=== PATIENT | female | born 1950 | race Caucasian/White ===

== ENCOUNTER 2016-07-29 14:30 | Emergency (ER) | payer OTHER, MEDICARE ==
--- NOTE | 2016-07-29 16:33 | ER Document Report ---
ED Medical Screen (RME) - General Chief Complaint: Back Pain Stated Complaint: POSSIBLE WITHDRAWAL Mode of Arrival: Ambulatory Information source: Patient Notes: Patient is complaining of abdominal pain described as burning, headache, insomnia, sweats, chills, diarrhea that started last night. She believes she is going through withdrawal from oxycodone. She has been taking this medication for 7 years, most recent dosage was 20 mg. She states her new doctor won't refill her medication. Her last dose was yesterday afternoon. She has not had any other medications. TRAVEL OUTSIDE OF THE [place] IN LAST 30 DAYS: No - Related Data Allergies/Adverse Reactions: No Known Allergies Allergy (Unverified 07/29/16 14:49) Review of Systems - Review of Systems Constitutional: See HPI Gastrointestinal: See HPI Musculoskeletal: See HPI Physical Exam - Vital signs Vitals: Temp Pulse Resp BP Pulse Ox 98.0 F 89 18 151/80 H 99 07/29/16 14:45 07/29/16 14:45 07/29/16 14:45 07/29/16 14:45 07/29/16 14:45 - Notes Notes: General: ill-appearing, no respiratory distress. Appears uncomfortable. Course - Re-evaluation Re-evalutation: 07/29/16 16:32 Ordered lab work and urinalysis. Patient refused tylenol. - Vital Signs Vital signs: Temp Pulse Resp BP Pulse Ox 98.0 F 89 18 151/80 H 99 07/29/16 14:45 07/29/16 14:45 07/29/16 14:45 07/29/16 14:45 07/29/16 14:45
[2016-07-29 17:28] LABS: ABSOLUTE BASOPHILS # (AUTO) 0.1 10^3/uL (0.0-0.2); ABSOLUTE LYMPHOCYTES (AUTO) 1.8 10^3/uL (0.5-4.7); ABSOLUTE MONOCYTES (AUTO) 0.4 10^3/uL (0.1-1.4); ABSOLUTE NEUT (AUTO) 8.9 10^3/uL (1.7-8.2); BASOPHILS % (AUTO) 0.7 % (0-2); EOSINOPHILS % (AUTO) 0.2 % (0-6); HEMATOCRIT 46.5 % (36.0-47.0); HEMOGLOBIN 15.5 g/dL (12.0-15.5); LYMPHOCYTES % (AUTO) 16.5 % (13-45); MEAN CORPUSCULAR HEMOGLOBIN 29.6 pg (27.0-33.4); MEAN CORPUSCULAR HGB CONC 33.3 g/dL (32.0-36.0); MEAN CORPUSCULAR VOLUME 89 fl (80-97); MONOCYTES % (AUTO) 3.2 % (3-13); RED BLOOD COUNT 5.22 10^6/uL (3.72-5.28); RED CELL DISTRIBUTION WIDTH 13.8 % (11.5-14.0); SEGMENTED NEUTROPHILS % (AUTO) 79.4 % (42-78); WHITE BLOOD COUNT 11.2 10^3/uL (4.0-10.5)
[2016-07-29 17:45] LABS: ALANINE AMINOTRANSFERASE 24 U/L (9-52); ALBUMIN 4.9 g/dL (3.5-5.0); ALKALINE PHOSPHATASE 82 U/L (38-126); ANION GAP 15 (5-19); ASPARTATE AMINO TRANSFERASE 16 U/L (14-36); BILIRUBIN,TOTAL 0.5 mg/dL (0.2-1.3); BLOOD UREA NITROGEN 12 mg/dL (7-20); CARBON DIOXIDE 25 mmol/L (22-30); CHLORIDE 104 mmol/L (98-107); CREATININE RESULT 0.54 mg/dL (0.52-1.25); GLUCOSE 92 mg/dL (75-110); LIPASE 33.7 U/L (23-300); POTASSIUM 4.3 mmol/L (3.6-5.0); SODIUM 143.7 mmol/L (137-145); TOTAL PROTEIN 7.6 g/dL (6.3-8.2)
[2016-07-29 17:46] LABS: APPEARANCE,URINE SLIGHTLY-CLOUDY; BILIRUBIN,URINE NEGATIVE (NEGATIVE); GLUCOSE, URINE NEGATIVE (NEGATIVE); KETONES,URINE NEGATIVE (NEGATIVE); LEUKOCYTE ESTERASE,URINE TRACE (NEGATIVE); NITRITE,URINE NEGATIVE (NEGATIVE); PROTEIN,URINE NEGATIVE (NEGATIVE); URINE SPECIFIC GRAVITY 1.013; UROBILINOGEN,URINE NEGATIVE mg/dL (<2.0)
[2016-07-29 18:00] LABS: URINE BARBITURATES SCREEN NEGATIVE; URINE METHADONE SCREEN NEGATIVE; URINE PHENCYCLIDINE SCREEN NEGATIVE
[2016-07-29] MEDS ORDERED: HYDROXYZINE PAMOATE 25 MG CAPSULE PO ONE (20:46)
[2016-07-29] MEDS ORDERED: PROMETHAZINE HCL 25 MG TABLET PO ONE (20:46)
--- NOTE | 2016-07-29 20:48 | ER Document Report ---
ED General - General Chief Complaint: withdrawl symptoms Stated Complaint: POSSIBLE WITHDRAWAL Time seen by provider: 20:45 Mode of Arrival: Ambulatory Notes: Patient is a 66-year-old female that comes emergency department for chief complaint of chills, diarrhea, abdominal cramping, insomnia since yesterday. She states she is probably going through withdrawals oxycodone, she has been on this for 7 years for a back injury, she states that she was considering getting off oxycodone and now suddenly her provider told her they will not fill her prescription, refer her to pain management which is in [place], she states she has not been able to get to [place]. Last dose was yesterday afternoon. She denies any other past medical history or any other medications. TRAVEL OUTSIDE OF THE [place] IN LAST 30 DAYS: No - Related Data Allergies/Adverse Reactions: No Known Allergies Allergy (Unverified 07/29/16 14:49) Past Medical History - General Information source: Patient Last Menstrual Period: unknown - Social History Smoking Status: Never Smoker Frequency of alcohol use: None Drug Abuse: None Lives with: Family Family History: Reviewed & Not Pertinent Patient has suicidal ideation: No Patient has homicidal ideation: No - Past Medical History Cardiac Medical History: Reports: Hx Hypertension - Immunizations Hx Diphtheria, Pertussis, Tetanus Vaccination: Yes Review of Systems - Review of Systems Constitutional: See HPI EENT: No symptoms reported Cardiovascular: No symptoms reported Respiratory: No symptoms reported Gastrointestinal: See HPI Genitourinary: No symptoms reported Female Genitourinary: No symptoms reported Musculoskeletal: See HPI Skin: No symptoms reported Hematologic/Lymphatic: No symptoms reported Neurological/Psychological: No symptoms reported Physical Exam - Vital signs Vitals: Temp Pulse Resp BP Pulse Ox 98.0 F 89 18 151/80 H 99 07/29/16 14:45 07/29/16 14:45 07/29/16 14:45 07/29/16 14:45 07/29/16 14:45 Interpretation: Normal - General General appearance: Anxious In distress: Mild - Patient appears uncomfortable, restless, disheveled - HEENT Head: Normocephalic, Atraumatic Eyes: Normal Conjunctiva: Normal Extraocular movements intact: Yes Eyelashes: Normal Pupils: PERRL Sinus: Normal Nasal: Normal Mouth/Lips: Normal Mucous membranes: Normal Pharynx: Normal Neck: Normal - Respiratory Respiratory status: No respiratory distress Chest status: Nontender Breath sounds: Normal. No: Decreased air movement, Wheezing Chest palpation: Normal - Cardiovascular Rhythm: Regular. No: Tachycardia Heart sounds: Normal auscultation, S1 appreciated, S2 appreciated Murmur: No - Abdominal Inspection: Normal Distension: No distension Bowel sounds: Normal Tenderness: Nontender - Benign nontender abdomen. No: Tender, Guarding Organomegaly: No organomegaly - Back Back: Normal, Nontender. No: Tender, CVA tenderness - Extremities General upper extremity: Normal inspection, Nontender, Normal color, Normal ROM , Normal temperature General lower extremity: Normal inspection, Nontender, Normal color, Normal ROM , Normal temperature, Normal weight bearing. No: Nestor's sign - Neurological Neuro grossly intact: Yes Cognition: Normal Orientation: AAOx4 Norman Coma Scale Eye Opening: Spontaneous Norman Coma Scale Verbal: Oriented Vince Coma Scale Motor: Obeys Commands Vince Coma Scale Total: 15 Speech: Normal Cranial nerves: Normal Cerebellar coordination: Normal Motor strength normal: LUE, RUE, LLE, RLE Additional motor exam normals: Equal evaluation analyst Sensory: Normal - Psychological Associated symptoms: Irritable - Skin Skin Temperature: Warm Skin Moisture: Dry Skin Color: Normal Course - Re-evaluation Re-evalutation: Discussed in detail with patient. After Phenergan, Vistaril, patient is still very restless, has body aches, has nausea, very uncomfortable. Discussed with patient continued withdrawal with symptom management medications versus short- term supply and close follow-up with arrangements for detox. Patient also has the option of the pain clinic she was referred to but has not made it to yet. Patient unsure initially, on reevaluation she continues to be miserable she requests something for pain. She was provided with this, short-term supply of pain medication, referral to [facility] for arrangements for detox, patient states this is the route that she wants to pursue. Advised to return for any concerning symptoms. Friend is very supportive during the entire visit and is at bedside, and agreement with plan. - Vital Signs Vital signs: Temp Pulse Resp BP Pulse Ox 97.8 F 62 18 145/68 H 99 07/29/16 22:56 07/29/16 22:56 07/29/16 22:56 07/29/16 22:56 07/29/16 22:56 - Laboratory Result Diagrams: 07/29/16 17:02 07/29/16 17:02 Laboratory results interpreted by me: 07/29/16 07/29/16 07/29/16 17:02 17:02 17:02 WBC 11.2 H Seg Neutrophils % 79.4 H Absolute Neutrophils 8.9 H Calcium 11.0 H Urine Blood SMALL H Ur Leukocyte Esterase TRACE H Discharge - Discharge Clinical Impression: Opiate withdrawal Opiate dependence Qualifiers: Substance use status: uncomplicated Qualified Code(s): F11.20 - Opioid dependence, uncomplicated Condition: Stable Disposition: HOME, SELF-CARE Additional Instructions: Please follow-up with [facility] or your primary care to discuss referral for detox program. Alternatively consider following up with pain management which your primary care referred you to. Return the emergency department for any concerning symptoms. Prescriptions: Oxycodone HCl [Oxycodone HCl 10 MG Tablet] 1 - 2 tab PO Q6H PRN #25 tablet PRN Reason: PAIN Referrals: GOVIND FLANAGAN [Primary Care Provider] - Follow up as needed [facility] [Provider Group] - Follow up tomorrow
[2016-07-29] MEDS ORDERED: OXYCODONE HCL IR 5 MG TABLET PO ONE (22:25)
[2016-07-29 22:57] VITALS: BP 145/68
== END 2016-07-29 22:59 | disposition home or self-care (01) ==
LOC: ER 14:30
DX: F11.23 Opioid dependence with withdrawal (principal); R19.7 Diarrhea, unspecified; R10.9 Unspecified abdominal pain; G47.00 Insomnia, unspecified; F11.20 Opioid dependence, uncomplicated
CPT/HCPCS: 99284; 36415; 83690; 85025; 80053; 81001; G0479; 80307

== ENCOUNTER → 2016-10-20 | Outpatient (CLI) | payer OTHER | LOC: RAD 17:01 | PROVIDERS: ATTEND Specialist | DX: C34.91 Malignant neoplasm of unspecified part of right bronchus or lung (principal) | CPT/HCPCS: 78815; A9552 ==

== ENCOUNTER → 2016-10-21 | Outpatient (CLI) | payer OTHER | LOC: RAD 13:31 | PROVIDERS: ATTEND Specialist | DX: C34.91 Malignant neoplasm of unspecified part of right bronchus or lung (principal) | CPT/HCPCS: 70553; A9577 ==

== ENCOUNTER → 2016-11-06 | Outpatient (CLI) | payer MEDICARE, OTHER ==
[2016-11-06 11:27] LABS: ABSOLUTE LYMPHOCYTES (AUTO) 1.2 10^3/uL (0.5-4.7); ABSOLUTE NEUT (AUTO) 12.1 10^3/uL (1.7-8.2); BASOPHILS % (AUTO) 0.2 % (0-2); EOSINOPHILS % (AUTO) 0.1 % (0-6); HEMATOCRIT 42.6 % (36.0-47.0); HEMOGLOBIN 14.8 g/dL (12.0-15.5); HGB HCT DIFFERENCE 1.8; LYMPHOCYTES % (AUTO) 8.7 % (13-45); MEAN CORPUSCULAR HEMOGLOBIN 31.8 pg (27.0-33.4); MEAN CORPUSCULAR HGB CONC 34.6 g/dL (32.0-36.0); MEAN CORPUSCULAR VOLUME 92 fl (80-97); RED BLOOD COUNT 4.64 10^6/uL (3.72-5.28); RED CELL DISTRIBUTION WIDTH 13.1 % (11.5-14.0); WHITE BLOOD COUNT 14.4 10^3/uL (4.0-10.5)
== END ==
LOC: OD 10:41
PROVIDERS: ATTEND Radiology Radiation Oncology
DX: C34.11 Malignant neoplasm of upper lobe, right bronchus or lung (principal); C79.31 Secondary malignant neoplasm of brain
CPT/HCPCS: 36415; 85025

== ENCOUNTER → 2016-12-29 | Outpatient (CLI) | payer OTHER ==
--- NOTE | 2016-12-30 10:28 | RADIOLOGY REPORT (SQ) ---
EXAM DESCRIPTION: PET CT SKULL/THIGH COMPLETED DATE/TIME: 12/29/2016 10:46 pm REASON FOR STUDY: LUNG CANCER C34.91 MALIGNANT NEOPLASM OF UNSP PART OF RIGHT BRONCHUS OR COMPARISON: Bold PET-CT 02/13/2016 PET-CT 10/20/2016 RADIONUCLIDE AND DOSE: 11.6 mCi F18 FDG The route of agent administration: Intravenous FASTING BLOOD SUGAR: 96 mg/dl CONTRAST TYPE AND DOSE: No CT contrast given. TECHNIQUE: Blood glucose level was verified. Above dose of FDG was injected intravenously. 2-D seg mented attenuation correction images were obtained from the base of the skull to the midthighs. Nonc ontrast CT images were obtained for attenuation correction and fusion with emission images. CT image s were performed without oral or intravenous contrast and are not sensitive for parenchymal lesions. A series of overlapping emission PET images were obtained. Images reviewed and manipulated at [facility] work station by the radiologist. Images stored on PACS. LIMITATIONS: None. FINDINGS: HEAD AND NECK: No areas of abnormal metabolic activity in the soft tissues of the head and neck. CHEST: No areas of abnormal metabolic activity in the chest. ABDOMEN AND PELVIS: No areas of abnormal metabolic activity in the abdomen or pelvis. Expected physi ologic activity is present in the genitourinary system and bowel. PROXIMAL LOWER EXTREMITIES: No areas of abnormal metabolic activity in the soft tissues of the lower extremities. BONES: No areas of abnormal metabolic activity in the bony structures. ADDITIONAL CT FINDINGS: Post right upper lobectomy. Old bilateral breast implants. Post hysterectom y. OTHER: Blood pool activity SUV 2.0, liver activity SUV 2.4 IMPRESSION: No PET-CT evidence of residual or recurrent disease given history of stage IV non-small cell lung cancer TECHNICAL DOCUMENTATION: JOB ID: [id number]- All Rights Reserved
== END ==
LOC: RAD 16:05
PROVIDERS: ATTEND Specialist
DX: C34.91 Malignant neoplasm of unspecified part of right bronchus or lung (principal)
CPT/HCPCS: 78815; A9552

== ENCOUNTER → 2017-03-14 | Outpatient (CLI) | payer OTHER ==
--- NOTE | 2017-03-14 12:25 | RADIOLOGY REPORT (SQ) ---
EXAM DESCRIPTION: MRI HEAD COMBO COMPLETED DATE/TIME: 03/14/2017 10:33 am REASON FOR STUDY: LUNG CA C34.91 MALIGNANT NEOPLASM OF UNSP PART OF RIGHT BRONCHUS OR COMPARISON: MRI brain 10/21/2016 TECHNIQUE: Multiplanar imaging includes noncontrasted T1, T2, FLAIR, diffusion with ADC map and post gadolinium contrast T1 sequences. Images stored on PACS. CONTRAST TYPE AND DOSE: 10 mL Multihance. RENAL FUNCTION: GFR > 60. LIMITATIONS: None. FINDINGS: ANATOMY: No congenital anomalies. Normal vascular flow voids. Pituitary fossa normal. CSF SPACES: Normal in size and contour. No hemorrhage. CEREBRUM: Patient is post right frontal craniotomy. Deep to the craniotomy flap there is mild anteri or right frontal encephalomalacia. There is minimal dural thickening deep to the craniotomy flap. N odule with enhancement seen on 09/26/2016 is no longer present. There is diffuse dural thickening along the rightward aspect of the superior sagittal sinus, less pro minent than on 10/21/2016. There is a small dural enhancing mass along the anterior aspect anterior cranial fossa best shown on axial image 105/ 152. This measures 1.8 x 1 cm in size (was 2.4 x 1.3 cm in size on 09/26/2016). An enhancing dural-based left falx nodules in the posterior frontal region is 1.1 x 1 cm on today's e xam (was 1.4 x 1 cm on 10/21/2016). Today's imaging demonstrates increased FLAIR/ T2 signal in the right frontal white matter deep to the craniotomy flap, stable, in the left posterior frontal region adjacent to the dural-based metastatic nodule, stable, and in the bilateral posterior temporal/periatrial regions, stable. No MR evidence of acute ischemic change, acute intracranial hemorrhage, mass effect, or shift. POSTERIOR FOSSA: Punctate focus of increased FLAIR/ T2 signal in the right jessica without contrast enha ncement. This likely represents a small focus of white matter ischemic change. No hemorrhage. No ed tobias, masses, or mass effect. Internal auditory canals, cerebellopontine angles, mastoids normal. No e nhancing lesions. No abnormal enhancement post contrast. DIFFUSION IMAGING: Negative for acute or subacute infarction. ORBITS: No masses. Globes normal. PARANASAL SINUSES: No fluid levels. Mucosa normal. OTHER: Fluid in the right mastoid air cells, similar compared to 10/21/2016 IMPRESSION: Treatment response with decrease in size of dural-based metastatic lesions as above. EVIDENCE OF ACUTE STROKE: NO. TECHNICAL DOCUMENTATION: JOB ID: [id number] [employer]- All Rights Reserved
== END ==
LOC: RAD 09:24
PROVIDERS: ATTEND Internal Medicine
DX: C34.91 Malignant neoplasm of unspecified part of right bronchus or lung (principal)
CPT/HCPCS: 82565; 70553; A9577

== ENCOUNTER 2017-03-26 10:15 | Day surgery (SDC) | payer OTHER ==
[2017-03-24 11:35] LABS: HEMATOCRIT 43.7 % (36.0-47.0); HEMOGLOBIN 15.1 g/dL (12.0-15.5); HGB HCT DIFFERENCE 1.6; MEAN CORPUSCULAR HEMOGLOBIN 31.2 pg (27.0-33.4); MEAN CORPUSCULAR HGB CONC 34.5 g/dL (32.0-36.0); MEAN CORPUSCULAR VOLUME 90 fl (80-97); RED BLOOD COUNT 4.83 10^6/uL (3.72-5.28); RED CELL DISTRIBUTION WIDTH 13.6 % (11.5-14.0); WHITE BLOOD COUNT 7.8 10^3/uL (4.0-10.5)
[2017-03-24 12:00] LABS: ANION GAP 11 (5-19); BLOOD UREA NITROGEN 10 mg/dL (7-20); CALCIUM 10.7 mg/dL (8.4-10.2); CARBON DIOXIDE 31 mmol/L (22-30); CHLORIDE 99 mmol/L (98-107); CREATININE RESULT 0.63 mg/dL (0.52-1.25); GLUCOSE 90 mg/dL (75-110); POTASSIUM 4.7 mmol/L (3.6-5.0); SODIUM 140.6 mmol/L (137-145)
--- NOTE | 2017-03-24 12:04 | EKG REPORT ---
SEVERITY:- OTHERWISE NORMAL ECG - SINUS RHYTHM LOW VOLTAGE IN FRONTAL LEADS : Confirmed by: Stacy Alexis 24-Mar-2017 12:03:52
[~2017-03-26 10:15] MED LIST: ACETAMINOPHEN 325 MG TABLET PO PRN; CEFAZOLIN 1 GM/D5W RTU 1 GM/50 ML RTUPB IV PRN; LACTATED RINGERS 1000 ML IV PRN; LIDOCAINE 0.5% INJ-PF (5 MG/ML) 50 ML SDV SUBCUT PRN
[2017-03-26] MEDS ORDERED: MIDAZOLAM 2 MG/2 ML INJ ONE (12:50)
[2017-03-26] MEDS ORDERED: FENTANYL CITRATE INJ/PF 100 MCG/2 ML AMPUL ONE ×2 (12:50→12:52)
[2017-03-26] MEDS ORDERED: PROPOFOL INJ 200 MG/20 ML VIAL IV ONE (12:51)
[2017-03-26] MEDS ORDERED: LIDOCAINE 1% INJ-PF (10 MG/ML) 30 ML SDV ONE ×2 (13:39→13:44)
[2017-03-26] MEDS ORDERED: DIPHENHYDRAMINE HCL 50 MG/ML VIAL IV PRN (13:43)
[2017-03-26] MEDS ORDERED: ONDANSETRON HCL INJ/PF 4 MG/2 ML SDV IV PRN ×2 (13:43→13:49)
[2017-03-26] MEDS ORDERED: FENTANYL CITRATE INJ/PF 100 MCG/2 ML AMPUL IV PRN ×3 (13:43)
[2017-03-26] MEDS ORDERED: OXYCODONE-ACETAMINOPHEN 5-325 MG TABLET PO PRN ×2 (13:49→13:59)
[2017-03-26] MEDS ORDERED: RINGERS SOLUTION,LACTATED 1,000 ML IV PRN (13:49)
--- NOTE | 2017-03-26 13:59 | PDOC DISCHARGE SUMMARY ---
Discharge Summary (SDC) - Discharge Final Diagnosis: metastatic lung carcinoma Date of Surgery: 03/26/17 Discharge Date: 03/26/17 Condition: Stable Treatment or Instructions: Leave paper bandaids intact until your follow up appointment. You may shower in 48 hours. Warm water and soap my run over the area. Do not scrub. If you have any questions or concerns you may call [facility] ) or if it is after hours you may call [facility] ([phone]) and ask to speak with the surgicalist. If you have unusual bleeding, swelling of incision site, swelling of neck or difficulty breathing call clinic/ hospital or go to ER. Follow up at [facility] in 10-12 days with Corinne Cesar PA-C. [facility]: [phone] Prescriptions: Ketorolac Tromethamine [Toradol 10 mg Tablet] 10 mg PO Q6HP PRN #20 tablet PRN Reason: Referrals: PANFILO NICHOLSON PA [Primary Care Provider] - Discharge Diet: As Tolerated Discharge Activity: Activity As Tolerated Report the Following to Your Physician Immediately: Shortness of Breath, Fever over 101 Degrees, Redness, Swelling, Drainage-Foul Smelling
--- NOTE | 2017-03-26 15:25 | RADIOLOGY REPORT (SQ) ---
EXAM DESCRIPTION: CHEST SINGLE VIEW COMPLETED DATE/TIME: 03/26/2017 2:11 pm REASON FOR STUDY: port placement COMPARISON: PET-CT 12/29/2016 EXAM PARAMETERS: NUMBER OF VIEWS: One view. TECHNIQUE: Single frontal radiographic view of the chest acquired. RADIATION DOSE: NA LIMITATIONS: None. FINDINGS: LUNGS AND PLEURA: Few Meenakshi lines at the lung bases, question mild interstitial edema. No fluffy alveolar infiltrates worrisome for perihilar pulmonary edema or pneumonia. No pleural effusion. No pneumothorax. MEDIASTINUM AND HILAR STRUCTURES: No masses. Contour normal. HEART AND VASCULAR STRUCTURES: Heart normal in size. Normal vasculature. BONES: No acute findings. HARDWARE: Left-sided permanent central line tip superior vena cava. OTHER: No other significant finding. IMPRESSION: Meenakshi lines at both lung bases, question interstitial edema Left-sided permanent central line tip superior vena cava. No pneumothorax. TECHNICAL DOCUMENTATION: JOB ID: [id number]
--- NOTE | 2017-03-26 15:35 | OPERATIVE REPORT E ---
Operative Report NAME: RYAN GUY : 1950 AGE: 66Y DATE OF SURGERY: ROOM: PREOPERATIVE DIAGNOSIS: Metastatic lung carcinoma. POSTOPERATIVE DIAGNOSIS: Metastatic lung carcinoma. OPERATION: 1. Focused ultrasound of left neck. 2. Ultrasound-directed insertion of single lumen Infusaport catheter with pocket in the left subclavian position. 3. Interpretation of intraoperative fluoroscopy. SURGEON: NOA SHELTON M.D. LOGGING CREW FOREMAN: Dionicio Morse COMPLICATIONS: None. DRAINS: None. TISSUE REMOVED OR ALTERED: None. PROCEDURE: The patient was taken to the preoperative holding area to the main operating room where LMAC anesthesia was induced. The patient's head was turned to the right. The chest wall and left neck were prepped and draped in sterile fashion. Surgical plan and surgical timeout were conducted. The left neck was scanned with a variable frequency transducer. The left internal jugular vein was felt suitable for cannulation. The skin was anesthetized with 1% plain lidocaine. Using the Seldinger technique, the needle and wire, micro size, were threaded into the left IJ. A suitable site for placement of the port was chosen in the left subclavian position. The skin was anesthetized with 1% lidocaine plain. A 3-cm incision was made parallel to the clavicle, a subcutaneous pocket developed large enough to accommodate a single chamber port. The catheter was then trimmed to the appropriate length, approximately 25 cm, tunneled between the two incisions, then attached to the port and the port and catheter tucked into position. Under fluoroscopic guidance, the micro wire was switched over to a conventional 0.030-inch guidewire using the micro introducer. The micro introducer sheath was removed and an 8-0 Occitan dilator and sheath were threaded over the wire under fluoroscopic guidance. The dilator and wire were removed, catheter threaded into the left IJ and the strip-away sheath removed. Under fluoroscopic guidance, the catheter was found to be in the tip of the superior vena cava. No evidence of kinking of the catheter at the neck. We aspirated and then flushed the port and it appeared to function satisfactorily. There was no evidence of ectopy. The wound was closed with 3-0 Vicryl, Benzoin and Steri-Strips. The patient tolerated the procedure well, taken to recovery in stable condition. A portable upright chest x-ray pending at the time of dictation. Dionicio Morse assisted with line insertion, tissue retraction and wound closure. DICTATING PHYSICIAN: NOA SHELTON M.D. [id number] PHY#: [id number] ID: [id number] JOB#: [id number] ACCT: [id number] cc:NOA SHELTON M.D. > [facility]
--- NOTE | 2017-03-26 16:01 | RADIOLOGY REPORT (SQ) ---
EXAM DESCRIPTION: FLUORO/CV PLACEMENT COMPLETED DATE/TIME: 03/26/2017 3:27 pm REASON FOR STUDY: PORTACATH PLCMT LEFT SIDE ASSISTED WITH FLUORO IN OR C34.91 MALIGNANT NEOPLASM OF UNSP PART OF RIGHT BRONCHUS OR COMPARISON: PET-CT 12/29/2016 FLUOROSCOPY TIME: 0.3 minutes 2 C-arm images saved to PACS. TECHNIQUE: Intra-operative images acquired during surgical procedure to evaluate progress. NUMBER OF IMAGES: Cine fluoroscopic images. LIMITATIONS: None. FINDINGS: Intra procedural imaging and fluoro during left-sided permanent central line placement. P lease see the operative note for further details IMPRESSION: Intra procedural imaging and fluoro COMMENT: Quality ID [id number]: Final reports for procedures using fluoroscopy that document radiation exp osure indices, or exposure time and number of fluorographic images (if radiation exposure indices are not available) Please consult full operative report of the attending physician for description of the procedure. TECHNICAL DOCUMENTATION: JOB ID: [id number] [employer]- All Rights Reserved
[2017-03-26 16:18] VITALS: BP 124/61
== END 2017-03-26 15:55 | disposition home or self-care (01) ==
LOC: OROUT 10:15
PROVIDERS: ATTEND Surgery
PROC: 05H633Z Insertion of Infusion Device into Left Subclavian Vein, Percutaneous Approach (ICD-10-PCS; principal; 2017-03-26 12:00)
DX: C79.31 Secondary malignant neoplasm of brain (principal); Z85.118 Personal history of other malignant neoplasm of bronchus and lung; I10 Essential (primary) hypertension; Z88.5 Allergy status to narcotic agent; Z79.899 Other long term (current) drug therapy
CPT/HCPCS: 93005; 36415; 85027; 80048; 71010; 77001; 93010; 36561; C1752; C1788; J2250; J0690; J3010; J3490; J2704; J1642; 532

== ENCOUNTER → 2017-07-01 | Outpatient (CLI) | payer OTHER ==
--- NOTE | 2017-07-01 12:28 | RADIOLOGY REPORT (SQ) ---
EXAM DESCRIPTION: MRI HEAD COMBO COMPLETED DATE/TIME: 07/01/2017 11:11 am REASON FOR STUDY: C34.91 MALIGNANT NEOPLASM OF UNSP PART OF RIGHT BRONCHUS OR LUNG C34.91 MALIGNANT NEOPLASM OF UNSP PART OF RIGHT BRONCHUS OR COMPARISON: 03/14/2017 and 10/21/2016. TECHNIQUE: Multiplanar imaging includes noncontrasted T1, T2, FLAIR, diffusion with ADC map and post gadolinium contrast T1 sequences. Images stored on PACS. CONTRAST TYPE AND DOSE: 10 mL Multihance. RENAL FUNCTION: GFR > 60. LIMITATIONS: None. FINDINGS: ANATOMY: No anomalies. Normal vascular flow voids. Pituitary fossa normal. CSF SPACES: Normal in size and contour. No hemorrhage. CEREBRUM: Previous right frontal craniotomy. Nodular dural thickening and enhancement anterior to th e right frontal lobe and along the anterior falx. Enhancing nodules along the right side of the ante rior falx, measuring 7 and 9 mm (sagittal series 13, image 13). Previous measurements 6 and 7 mm. E nhancing nodule on the left side of the mid falx, measuring 1 x 1 cm (axial series 11, image 18. Pre vious measurements 1 x 1.1 cm. Stable diffuse white matter increased signal on T2 and FLAIR imaging. POSTERIOR FOSSA: No signal alteration. No hemorrhage. No edema, masses, or mass effect. Internal jimy tory canals and cerebellopontine angles normal. Increased signal in the right mastoid air cells. No enhancing lesions. No abnormal enhancement post contrast. DIFFUSION IMAGING: Negative for acute or subacute infarction. ORBITS: No masses. Globes normal. PARANASAL SINUSES: No fluid levels. Mucosa normal. OTHER: No other significant finding. IMPRESSION: 1. STABLE SURGICAL CHANGES WITH ENHANCING DURAL BASED NODULES DESCRIBED. RELATIVELY STABLE APPEAR ANCE. THE NODULES ON THE RIGHT SIDE OF THE ANTERIOR FALX MEASURE A FEW MM LARGER ON THE CURRENT STUD Y BUT THIS MAY BE PARTLY DUE TO SLICE POSITION. EXTENSIVE WHITE MATTER SIGNAL CHANGE IS STABLE. 2. INCREASED SIGNAL IN THE RIGHT MASTOID AIR CELLS, PRESUMED INFLAMMATORY OR RELATED TO PREVIOUS MARCELLA TMENT, UNCHANGED. EVIDENCE OF ACUTE STROKE: NO. TECHNICAL DOCUMENTATION: JOB ID: [id number] [employer]- All Rights Reserved
--- NOTE | 2017-07-01 13:20 | RADIOLOGY REPORT (SQ) ---
EXAM DESCRIPTION: CT CHEST WITH COMPLETED DATE/TIME: 07/01/2017 10:09 am REASON FOR STUDY: C34.91 MALIGNANT NEOPLASM OF UNSP PART OF RIGHT BRONCHUS OR LUNG C34.91 MALIGNANT NEOPLASM OF UNSP PART OF RIGHT BRONCHUS OR COMPARISON: PET-CT dated 12/29/2016 and 10/20/2016. TECHNIQUE: CT scan of the chest performed using helical scanning technique with dynamic intravenous contrast injection. Images reviewed with lung, soft tissue and bone windows. Reconstructed coronal and sagittal MPR images reviewed. All images stored on PACS. All CT scanners at this facility use dose modulation, iterative reconstruction, and/or weight based d osing when appropriate to reduce radiation dose to as low as reasonably achievable (ALARA). [facility]: Dose Right [facility]: CareDose [facility]: Dose Right [facility]: Teradose 4D [facility]: [employer] CONTRAST TYPE AND DOSE: 58 mL Isovue 370- low osmolar. RENAL FUNCTION: BUN 14 creatinine 0.6. RADIATION DOSE: . LIMITATIONS: None. FINDINGS: LUNGS AND PLEURA: Stable surgical changes. Mild chronic parenchymal scarring. No opaciti es, nodules, masses. No pneumothorax. No effusions. HILAR AND MEDIASTINAL STRUCTURES: No identified masses or abnormal nodes. HEART AND VASCULAR STRUCTURES: No aneurysm or dissection. No central pulmonary emboli. No pericardi al effusion. HARDWARE: Vascular access port. Breast implants. UPPER ABDOMEN: No significant findings. Limited exam. THYROID AND OTHER SOFT TISSUES: No masses. No adenopathy. BONES: No significant finding. OTHER: No other significant finding. IMPRESSION: STABLE SURGICAL CHANGES. MILD SCARRING. NO OTHER SIGNIFICANT FINDINGS. NO EVIDENCE OF RESIDUAL OR RECURRENT DISEASE OR METASTASIS. TECHNICAL DOCUMENTATION: JOB ID: [id number] Quality ID # [id number]: Final reports with documentation of one or more dose reduction techniques (e.g., Au tomated exposure control, adjustment of the mA and/or kV according to patient size, use of iterative reconstruction technique) 2010 [employer]- All Rights Reserved
--- NOTE | 2017-07-01 13:24 | RADIOLOGY REPORT (SQ) ---
EXAM DESCRIPTION: CT ABD/PELVIS WITH IV ONLY COMPLETED DATE/TIME: 07/01/2017 10:09 am REASON FOR STUDY: C34.91 MALIGNANT NEOPLASM OF UNSP PART OF RIGHT BRONCHUS OR LUNG C34.91 MALIGNANT NEOPLASM OF UNSP PART OF RIGHT BRONCHUS OR COMPARISON: PET scan dated 12/29/2016 and 10/20/2016. TECHNIQUE: CT scan of the abdomen and pelvis performed using helical scanning technique with dynamic intravenous contrast injection. No oral contrast. Images reviewed with lung, soft tissue, and bone windows. Reconstructed coronal and sagittal MPR images reviewed. Delayed images for evaluation of the urinary system also acquired. All images stored on PACS. All CT scanners at this facility use dose modulation, iterative reconstruction, and/or weight based d osing when appropriate to reduce radiation dose to as low as reasonably achievable (ALARA). [facility]: Dose Right [facility]: CareDose [facility]: Dose Right [facility]: Teradose 4D [facility]: PPTV CONTRAST TYPE AND DOSE: contrast/concentration: Isovue 370.00 mg/ml; Total Contrast Delivered: 58.0 ml; Total Saline Delivered: 65.0 ml RENAL FUNCTION: BUN 14 creatinine 0.6. RADIATION DOSE: CT Rad equipment meets quality standard of care and radiation dose reduction techniq ues were employed. CTDIvol: 4.4 - 4.5 mGy. DLP: 637 mGy-cm.. LIMITATIONS: None. FINDINGS: LOWER CHEST: No significant findings. No nodules or infiltrates. LIVER: Normal size. No masses. No dilated ducts. SPLEEN: Normal size. No focal lesions. PANCREAS: No masses. No significant calcifications. No adjacent inflammation or peripancreatic fluid collections. Pancreatic duct not dilated. GALLBLADDER: No identified stones by CT criteria. No inflammatory changes to suggest cholecystitis. ADRENAL GLANDS: No significant masses or asymmetry. RIGHT KIDNEY AND URETER: No solid masses. No significant calcifications. No hydronephrosis or hyd roureter. LEFT KIDNEY AND URETER: No solid masses. No significant calcifications. No hydronephrosis or hydr oureter. AORTA AND VESSELS: Extensive calcifications. No aneurysm. No dissection. Renal arteries, SMA, celiac without stenosis. RETROPERITONEUM: No retroperitoneal adenopathy, hemorrhage or masses. BOWEL AND PERITONEAL CAVITY: No masses or inflammatory changes. No free fluid or peritoneal masses. APPENDIX: Normal. PELVIS: No mass. No free fluid. Normal bladder. ABDOMINAL WALL: No masses. No hernias. BONES: No significant or acute findings. Degenerative changes in the spine. OTHER: No other significant finding. IMPRESSION: NONOBSTRUCTING LEFT RENAL CALCULUS. NO OTHER SIGNIFICANT OR ACUTE FINDING IN THE ABDOME N OR PELVIS ON CT SCAN WITH IV CONTRAST. NO EVIDENCE OF METASTATIC INVOLVEMENT. TECHNICAL DOCUMENTATION: JOB ID: [id number] Quality ID # [id number]: Final reports with documentation of one or more dose reduction techniques (e.g., Au tomated exposure control, adjustment of the mA and/or kV according to patient size, use of iterative reconstruction technique) 2010 [employer]- All Rights Reserved
== END ==
LOC: RAD 09:18
PROVIDERS: ATTEND Internal Medicine
DX: C34.91 Malignant neoplasm of unspecified part of right bronchus or lung (principal); N20.0 Calculus of kidney
CPT/HCPCS: 70553; 71260; 74177; A9577

== ENCOUNTER → 2017-09-19 | Outpatient (CLI) | payer MEDICARE, OTHER ==
--- NOTE | 2017-09-19 09:48 | RADIOLOGY REPORT (SQ) ---
EXAM DESCRIPTION: CT ABD/PELVIS WITH IV ONLY COMPLETED DATE/TIME: 09/19/2017 8:31 am REASON FOR STUDY: LUNG CA (C34.91) C34.91 MALIGNANT NEOPLASM OF UNSP PART OF RIGHT BRONCHUS OR COMPARISON: None. TECHNIQUE: CT scan of the abdomen and pelvis performed using helical scanning technique with dynamic intravenous contrast injection. No oral contrast. Images reviewed with lung, soft tissue, and bone windows. Reconstructed coronal and sagittal MPR images reviewed. Delayed images for evaluation of the urinary system also acquired. All images stored on PACS. All CT scanners at this facility use dose modulation, iterative reconstruction, and/or weight based d osing when appropriate to reduce radiation dose to as low as reasonably achievable (ALARA). [facility]: Dose Right [facility]: CareDose [facility]: Dose Right [facility]: Teradose 4D [facility]: [employer] CONTRAST TYPE AND DOSE: contrast/concentration: Isovue 370.00 mg/ml; Total Contrast Delivered: 61.0 ml; Total Saline Delivered: 65.0 ml RENAL FUNCTION: Creatinine: 0.5. RADIATION DOSE: CT Rad equipment meets quality standard of care and radiation dose reduction techniq ues were employed. CTDIvol: 4.4 - 4.6 mGy. DLP: 615 mGy-cm.. LIMITATIONS: None. FINDINGS: LOWER CHEST: Chronic subpleural interstitial changes and scarring. LIVER: Normal size. No masses. No dilated ducts. SPLEEN: Normal size. No focal lesions. PANCREAS: No abnormality of the pancreas. GALLBLADDER: The gallbladder is thick-walled. The gallbladder wall measures 4 mm. Follow-up with ga llbladder ultrasound could be obtained. Minimal intrahepatic biliary dilatation. ADRENAL GLANDS: No significant masses or asymmetry. RIGHT KIDNEY AND URETER: No abnormality seen. LEFT KIDNEY AND URETER: There is a cortical cyst of the lower pole the left kidney. There is a left lower pole renal calculus. AORTA AND VESSELS: Diffuse atherosclerotic change of the abdominal aorta with significant atheroscler otic stenosis origin of the superior mesenteric artery. Atherosclerotic change origin celiac artery. Atherosclerotic changes noted at origin of both renal arteries. RETROPERITONEUM: No retroperitoneal adenopathy, hemorrhage or masses. BOWEL AND PERITONEAL CAVITY: Evidence of constipation with a moderate amount of fecal material throu ghout the colon. Mild dilatation of small bowel. The possibility of an ileus is not excluded. APPENDIX: Normal. PELVIS: Urinary bladder: No abnormality seen. Uterus and adnexal regions no abnormality. ABDOMINAL WALL: No masses. No hernias. BONES: Multilevel lumbar spondylosis. Degenerative anterolisthesis of L3 on L4. Severe acquired yenifer nosis L4-5 with broad-based degenerated circumferential bulging disc. . Eccentric disc protrusion l aterally to the left L5-1. Broad-based degenerated circumferential bulging disc L3-4 with acquired s tenosis. IMPRESSION: 1. Changes of constipation. 2. Thick-walled gallbladder. Follow-up with gallbladder ultrasound would be indicated. TECHNICAL DOCUMENTATION: JOB ID: [id number] Quality ID # 436: Final reports with documentation of one or more dose reduction techniques (e.g., Au tomated exposure control, adjustment of the mA and/or kV according to patient size, use of iterative reconstruction technique) 2010 [employer]- All Rights Reserved
--- NOTE | 2017-09-19 09:49 | RADIOLOGY REPORT (SQ) ---
EXAM DESCRIPTION: MRI HEAD COMBO COMPLETED DATE/TIME: 09/19/2017 9:13 am REASON FOR STUDY: LUNG CA (C34.91) C34.91 MALIGNANT NEOPLASM OF UNSP PART OF RIGHT BRONCHUS OR COMPARISON: MRI brain 10/21/2016, 03/14/2017, 07/11/2017 TECHNIQUE: Multiplanar imaging includes noncontrasted T1, T2, FLAIR, diffusion with ADC map and post gadolinium contrast T1 sequences. Images stored on PACS. CONTRAST TYPE AND DOSE: 10 mL Multihance. RENAL FUNCTION: GFR > 60. LIMITATIONS: None. FINDINGS: ANATOMY: No developmental anomalies. Pituitary fossa normal. CSF SPACES: Normal in size and contour. No hemorrhage. CEREBRUM: Again, dural-based rind of abnormal soft tissue with contrast enhancement worrisome for met astatic disease. These findings have progressed over the right frontal region as follows: There is nodular dural thickening along the anterior aspect right frontal parasagittal region, best s hown on sagittal image 13 and axial images 16 through 18. This nodular dural thickening has increase d in size, at its widest, dural thickening currently measures 14 mm in thickness (was 9 mm in thickne ss on 07/01/2017). There is a rind of enhancing epidural tissue deep to the right craniotomy flap along the mid 3rd of t he superior sagittal sinus region. This is currently 7 mm in thickness (was 3.3 mm thickness on 07/01). There is a focal nodule along the inferior aspect mid 3rd falx on coronal image 15, currently 1.7 x 1 .5 cm in size (was 1.3 x 1.2 cm in size on 12/02/2011 13). There is flow void and normal contrast enhancement along the mid 3rd and posterior 3rd of the superio r sagittal sinus. This is similar compared to previous exams. Anterior third superior sagittal sinu s is involved with enhancing dural tumor, similar compared to previous studies Cerebral hemispheres exhibit diffuse bifrontal and biparietal increased FLAIR/ T2 signal likely repre senting a combination of underlying chronic white matter disease, post radiation change, and right fr ontal gliosis. POSTERIOR FOSSA: No signal alteration. No hemorrhage. No edema, masses, or mass effect. Internal jimy tory canals, cerebellopontine angles, mastoids normal. No enhancing lesions. No abnormal enhancement post contrast. DIFFUSION IMAGING: Negative for acute or subacute infarction. ORBITS: No masses. Globes normal. PARANASAL SINUSES: Fluid in the bilateral mastoid air cells. Right maxillary and bilateral ethmoid s inus mucous membrane thickening OTHER: No other significant finding. IMPRESSION: Progression of dural thickening and enhancement in the right frontal parasagittal region from metastatic disease EVIDENCE OF ACUTE STROKE: NO. TECHNICAL DOCUMENTATION: JOB ID: [id number] [employer]- All Rights Reserved
--- NOTE | 2017-09-19 10:44 | RADIOLOGY REPORT (SQ) ---
EXAM DESCRIPTION: CT CHEST WITH COMPLETED DATE/TIME: 09/19/2017 8:31 am REASON FOR STUDY: LUNG CA (C34.91) C34.91 MALIGNANT NEOPLASM OF UNSP PART OF RIGHT BRONCHUS OR COMPARISON: 07/01/2017. TECHNIQUE: CT scan of the chest performed using helical scanning technique with dynamic intravenous contrast injection. Images reviewed with lung, soft tissue and bone windows. Reconstructed coronal and sagittal MPR images reviewed. All images stored on PACS. All CT scanners at this facility use dose modulation, iterative reconstruction, and/or weight based d osing when appropriate to reduce radiation dose to as low as reasonably achievable (ALARA). [facility]: Dose Right [facility]: CareDose [facility]: Dose Right [facility]: Teradose 4D [facility]: [employer]/ CONTRAST TYPE AND DOSE: 61 mL Isovue 370- low osmolar. RENAL FUNCTION: Creatinine 0.9. RADIATION DOSE: . LIMITATIONS: None. FINDINGS: LUNGS AND PLEURA: Stable chronic changes with scarring. Surgical changes. No pulmonary n odules or masses. No focal infiltrates. No pleural effusion, pleural thickening, or pleural calcifi cation. HILAR AND MEDIASTINAL STRUCTURES: No identified masses or abnormal nodes. HEART AND VASCULAR STRUCTURES: No aneurysm or dissection. No central pulmonary emboli. No pericardi al effusion. HARDWARE: Vascular access port. Breast implants. UPPER ABDOMEN: No significant findings. Limited exam. THYROID AND OTHER SOFT TISSUES: No masses. No adenopathy. BONES: No significant finding. OTHER: No other significant finding. IMPRESSION: STABLE CT OF THE CHEST WITH IV CONTRAST. CHRONIC CHANGES. NO EVIDENCE OF RESIDUAL OR R ECURRENT DISEASE OR METASTASES. TECHNICAL DOCUMENTATION: JOB ID: [id number] Quality ID # 436: Final reports with documentation of one or more dose reduction techniques (e.g., Au tomated exposure control, adjustment of the mA and/or kV according to patient size, use of iterative reconstruction technique) 2010 [employer]- All Rights Reserved
== END ==
LOC: RAD 07:37
PROVIDERS: ATTEND Internal Medicine
DX: C34.91 Malignant neoplasm of unspecified part of right bronchus or lung (principal)
CPT/HCPCS: 82565; 70553; 71260; 74177; A9577

== ENCOUNTER 2017-11-23 22:18 | Emergency (ER) | payer OTHER, MEDICARE ==
--- NOTE | 2017-11-23 23:15 | ER Document Report ---
ED General - General Chief Complaint: Breathing Difficulty Stated Complaint: TROUBLE BREATHING Time Seen by Provider: 11/23/17 22:34 Notes: Patient is a 67-year-old female with a past medical history of lung cancer and brain cancer currently on chemotherapy who presents with shortness of breath and difficulty taking a full breath for the past 7-8 hours. Patient describes it as a feeling of shortness of breath, somewhat worsened by exertion. Nothing improves her symptoms. She denies any history of similar symptoms in the past. She states that the symptoms came on abruptly and have been overall unchanged since that time. She has not seen her primary doctor regarding today's concerns. She denies any hemoptysis, chest pain, syncope, nausea or vomiting. She notes that she has recently had a sinus infection and thinks that this may be contributing to her symptoms. She denies any history of DVT or pulmonary embolus. She does not take any form of anticoagulation. TRAVEL OUTSIDE OF THE [place] IN LAST 30 DAYS: No - Related Data Allergies/Adverse Reactions: No Known Allergies Allergy (Unverified 03/24/17 10:56) Past Medical History - General Information source: Patient - Social History Smoking Status: Former Smoker Frequency of alcohol use: None Drug Abuse: None Lives with: Family Family History: Reviewed & Not Pertinent - Past Medical History Cardiac Medical History: Reports: Hx Hypertension Denies: Hx Coronary Artery Disease, Hx Heart Attack Pulmonary Medical History: Denies: Hx Asthma, Hx Bronchitis, Hx COPD, Hx Pneumonia Neurological Medical History: Reports: Hx Seizures - 2 prior to brain sx. Denies: Hx Cerebrovascular Accident Musculoskeltal Medical History: Reports Hx Arthritis - HANDS - Immunizations Hx Diphtheria, Pertussis, Tetanus Vaccination: Yes Hx Pneumococcal Vaccination: 07/28/15 Review of Systems - Review of Systems Notes: Constitutional: Negative for fever. HENT: Negative for sore throat. Eyes: Negative for visual changes. Cardiovascular: Negative for chest pain. Respiratory: Positive for shortness of breath. Gastrointestinal: Negative for abdominal pain, vomiting or diarrhea. Genitourinary: Negative for dysuria. Musculoskeletal: Negative for back pain. Skin: Negative for rash. Neurological: Negative for headaches, weakness or numbness. 10 point ROS negative except as marked above and in HPI. Physical Exam - Vital signs Vitals: Temp Pulse Resp BP Pulse Ox 98.1 F 66 20 135/60 H 97 11/23/17 22:27 11/23/17 22:27 11/23/17 22:27 11/23/17 22:27 11/23/17 22:27 Interpretation: Normal Notes: PHYSICAL EXAMINATION: GENERAL: Well-appearing, well-nourished and in no acute distress. HEAD: Atraumatic, normocephalic. EYES: Pupils equal round and reactive to light, extraocular movements intact, sclera anicteric, conjunctiva are normal. ENT: nares patent, oropharynx clear without exudates. Moist mucous membranes. NECK: Normal range of motion, supple without lymphadenopathy LUNGS: Mildly diminished breath sounds on the right. No wheezing or rales. HEART: Regular rate and rhythm without murmurs ABDOMEN: Soft, nontender, normoactive bowel sounds. No guarding, no rebound. No masses appreciated. EXTREMITIES: Normal range of motion, no pitting or edema. No cyanosis. NEUROLOGICAL: No focal neurological deficits. Moves all extremities spontaneously and on command. PSYCH: Normal mood, normal affect. SKIN: Warm, Dry, normal turgor, no rashes or lesions noted. Course - Re-evaluation Re-evalutation: 11/23/17 23:14 Patient is a 67-year-old female who presents with approximately 7-8 hours of difficulty catching her breath and feeling like a fullness in her right lower chest. The patient has a history of lung and brain malignancy, currently on chemotherapy and has had a partial right pneumonectomy. Vitals within normal limits at time of assessment. Lung examination overall unremarkable without any wheezing or rales. She has no peripheral edema. No history of CHF or COPD. Nothing to suggest a pneumonia, restrictive or obstructive lung process on initial examination. Patient denies any chest pain to suggest ACS. Primary concern given her history of active chemotherapy for malignancy with associated difficulty taking a full deep breath and pleuritic pain would be for pulmonary embolus. As the patient is so high risk will go directly to a CT of the chest to further evaluate. 11/24/17 01:38 CT of the chest is normal without any evidence of acute pulmonary embolus. Patient's laboratories are otherwise unremarkable. She continues to have vitals within acceptable limits. I have spent the patient that at this time point the exact etiology of her symptoms is uncertain but does not appear to be from any life-threatening condition. At this time will discharge with return precautions and follow-up recommendations. Verbal discharge instructions given a the bedside and opportunity for questions given. Medication warnings reviewed. Patient is in agreement with this plan and has verbalized understanding of return precautions and the need for primary care follow-up in the next 24-72 hours. - Vital Signs Vital signs: Temp Pulse Resp BP Pulse Ox 98.1 F 66 18 131/79 H 97 11/23/17 22:27 11/23/17 22:27 11/24/17 00:00 11/24/17 00:00 11/24/17 00:00 - Laboratory Result Diagrams: 11/23/17 23:25 11/23/17 23:25 Laboratory results interpreted by me: 11/23/17 23:25 WBC 3.1 L Monocytes % 13.4 H Basophils % 2.2 H Absolute Neutrophils 1.4 L - Diagnostic Test Radiology reviewed: Reports reviewed Discharge - Discharge Clinical Impression: Shortness of breath, Chest fullness Condition: Good Disposition: HOME, SELF-CARE Additional Instructions: The exact cause of the symptoms you experienced today is uncertain based on the CT scan your chest and your labs it does not appear to be from any immediately life-threatening cause. It could be related to the recent upper respiratory infection that you have developed. Please return to the emergency room immediately if you develop worsening shortness of breath, being coughing blood, pass out, have chest pain, or have any other symptoms that are worrisome to you. Referrals: ENEDELIA RENEE MD [Primary Care Provider] - Follow up as needed
[2017-11-23 23:41] LABS: ABSOLUTE BASOPHILS # (AUTO) 0.1 10^3/uL (0.0-0.2); ABSOLUTE EOSINOPHILS # (AUTO) 0.2 10^3/uL (0.0-0.6); ABSOLUTE MONOCYTES (AUTO) 0.4 10^3/uL (0.1-1.4); ABSOLUTE NEUT (AUTO) 1.4 10^3/uL (1.7-8.2); BASOPHILS % (AUTO) 2.2 % (0-2); EOSINOPHILS % (AUTO) 5.4 % (0-6); HEMOGLOBIN 13.4 g/dL (12.0-15.5); LYMPHOCYTES % (AUTO) 32.7 % (13-45); MEAN CORPUSCULAR HEMOGLOBIN 31.5 pg (27.0-33.4); MEAN CORPUSCULAR HGB CONC 34.2 g/dL (32.0-36.0); MEAN CORPUSCULAR VOLUME 92 fl (80-97); MONOCYTES % (AUTO) 13.4 % (3-13); PLATELET COUNT 225 10^3/uL (150-450); RED BLOOD COUNT 4.24 10^6/uL (3.72-5.28); RED CELL DISTRIBUTION WIDTH 12.2 % (11.5-14.0); SEGMENTED NEUTROPHILS % (AUTO) 46.3 % (42-78); TOTAL CELLS COUNTED % (AUTO) 100 %; WHITE BLOOD COUNT 3.1 10^3/uL (4.0-10.5)
[2017-11-23 23:55] LABS: ANION GAP 8 (5-19); BLOOD UREA NITROGEN 17 mg/dL (7-20); CALCIUM 9.6 mg/dL (8.4-10.2); CARBON DIOXIDE 28 mmol/L (22-30); CHLORIDE 103 mmol/L (98-107); GLUCOSE 95 mg/dL (75-110); POTASSIUM 4.2 mmol/L (3.6-5.0); SODIUM 139.3 mmol/L (137-145)
--- NOTE | 2017-11-24 00:11 | EKG REPORT ---
SEVERITY:- ABNORMAL ECG - SINUS RHYTHM LOW VOLTAGE THROUGHOUT BORDERLINE R WAVE PROGRESSION, ANTERIOR LEADS BORDERLINE T ABNORMALITIES, ANT-LAT LEADS : Confirmed by: Saman Palma MD 24-Nov-2017 00:10:33
--- NOTE | 2017-11-24 01:35 | RADIOLOGY REPORT (SQ) ---
EXAM DESCRIPTION: CTA CHEST CLINICAL HISTORY: 67 years Female, sob, eval pe COMPARISON: 2.23.18, 12.5.17. TECHNIQUE: IV contrast. Multiplanar reformat. This exam was performed according to our departmental dose-optimization program, which includes automated exposure control, adjustment of the mA and/or kV according to patient size and/or use of iterative reconstruction technique. FINDINGS: No pulmonary embolus. No right ventricular strain. Mammary prostheses. Left jugular central line tip at the SVC. 0.7 cm left renal stone. Atherosclerosis. Mild chronic interstitial lung disease pattern. Emphysematous lung. Likely benign small cyst of the left kidney. Inferior neck, axillae, mediastinum, lungs, airway, lymphatics, heart, vasculature, upper abdomen, and musculoskeleton appear otherwise unremarkable. Impression: No acute cardiopulmonary findings. No pulmonary embolus.
[2017-11-24 01:55] VITALS: BP 126/76
== END 2017-11-24 02:10 | disposition home or self-care (01) ==
LOC: ER 22:18
DX: R06.02 Shortness of breath (principal); R07.89 Other chest pain; Z85.118 Personal history of other malignant neoplasm of bronchus and lung; Z85.841 Personal history of malignant neoplasm of brain; I10 Essential (primary) hypertension; Z79.899 Other long term (current) drug therapy; Z87.891 Personal history of nicotine dependence
CPT/HCPCS: 36415; 71275; 80048; 84484; 85025; 93005; 93010; 99285

== ENCOUNTER → 2018-01-09 | Outpatient (CLI) | payer MEDICARE, OTHER ==
--- NOTE | 2018-01-09 10:54 | RADIOLOGY REPORT (SQ) ---
EXAM DESCRIPTION: CT CHEST WITH COMPLETED DATE/TIME: 01/09/2018 8:12 am REASON FOR STUDY: LUNG CA (C34.91) C34.91 MALIGNANT NEOPLASM OF UNSP PART OF RIGHT BRONCHUS OR COMPARISON: 11/24/2017, 09/19/2017, and 07/01/2017. TECHNIQUE: CT scan of the chest performed using helical scanning technique with dynamic intravenous contrast injection. Images reviewed with lung, soft tissue and bone windows. Reconstructed coronal and sagittal MPR images reviewed. All images stored on PACS. All CT scanners at this facility use dose modulation, iterative reconstruction, and/or weight based d osing when appropriate to reduce radiation dose to as low as reasonably achievable (ALARA). [facility]: Dose Right [facility]: CareDose [facility]: Dose Right [facility]: Teradose 4D [facility]: [employer] CONTRAST TYPE AND DOSE: 62 mL Isovue 370- low osmolar. RENAL FUNCTION: Creatinine 0.8. RADIATION DOSE: CT Rad equipment meets quality standard of care and radiation dose reduction techniq ues were employed. CTDIvol: 4.4 - 4.5 mGy. DLP: 621 mGy-cm. . LIMITATIONS: None. FINDINGS: LUNGS AND PLEURA: Stable surgical changes. Emphysematous changes with mild scarring. No pulmonary nodules or masses. No pneumothorax. No effusions. HILAR AND MEDIASTINAL STRUCTURES: No identified masses or abnormal nodes. HEART AND VASCULAR STRUCTURES: No aneurysm or dissection. No central pulmonary emboli. No pericardi al effusion. HARDWARE: None in the chest. UPPER ABDOMEN: No significant findings. Limited exam. THYROID AND OTHER SOFT TISSUES: No masses. No adenopathy. BONES: No significant finding. OTHER: No other significant finding. IMPRESSION: STABLE SURGICAL CHANGES. EMPHYSEMATOUS CHANGES WITH MILD SCARRING. NO ACUTE FINDINGS. NO EVIDENCE OF RECURRENT DISEASE OR METASTASES. TECHNICAL DOCUMENTATION: JOB ID: [id number] Quality ID # 436: Final reports with documentation of one or more dose reduction techniques (e.g., Au tomated exposure control, adjustment of the mA and/or kV according to patient size, use of iterative reconstruction technique) 2010 [employer]- All Rights Reserved Reading location - IP/workstation name: [email or web address]
--- NOTE | 2018-01-09 11:07 | RADIOLOGY REPORT (SQ) ---
EXAM DESCRIPTION: CT ABD/PELVIS WITH IV ONLY COMPLETED DATE/TIME: 01/09/2018 8:12 am REASON FOR STUDY: LUNG CA (C34.91) C34.91 MALIGNANT NEOPLASM OF UNSP PART OF RIGHT BRONCHUS OR COMPARISON: 09/19/2017 and 07/01/2017. TECHNIQUE: CT scan of the abdomen and pelvis performed using helical scanning technique with dynamic intravenous contrast injection. No oral contrast. Images reviewed with lung, soft tissue, and bone windows. Reconstructed coronal and sagittal MPR images reviewed. Delayed images for evaluation of the urinary system also acquired. All images stored on PACS. All CT scanners at this facility use dose modulation, iterative reconstruction, and/or weight based d osing when appropriate to reduce radiation dose to as low as reasonably achievable (ALARA). [facility]: Dose Right [facility]: CareDose [facility]: Dose Right [facility]: Teradose 4D [facility]: [employer] CONTRAST TYPE AND DOSE: contrast/concentration: Isovue 370.00 mg/ml; Total Contrast Delivered: 62.0 ml; Total Saline Delivered: 55.8 ml RENAL FUNCTION: Creatinine 0.8. RADIATION DOSE: . LIMITATIONS: None. FINDINGS: LOWER CHEST: No significant findings. No nodules or infiltrates. LIVER: Normal size. No masses. No dilated ducts. SPLEEN: Normal size. No focal lesions. PANCREAS: No masses. No significant calcifications. No adjacent inflammation or peripancreatic fluid collections. Pancreatic duct not dilated. GALLBLADDER: No identified stones by CT criteria. No inflammatory changes to suggest cholecystitis. ADRENAL GLANDS: No significant masses or asymmetry. RIGHT KIDNEY AND URETER: No solid masses. No significant calcifications. No hydronephrosis or hyd roureter. LEFT KIDNEY AND URETER: No solid masses. 5 mm calculus. No hydronephrosis or hydroureter. AORTA AND VESSELS: No aneurysm. No dissection. Renal arteries, SMA, celiac without stenosis. RETROPERITONEUM: No retroperitoneal adenopathy, hemorrhage or masses. BOWEL AND PERITONEAL CAVITY: No masses or inflammatory changes. No free fluid or peritoneal masses. APPENDIX: Normal. PELVIS: No mass. No free fluid. Normal bladder. ABDOMINAL WALL: No masses. No hernias. BONES: No significant or acute findings. Degenerative changes in the spine with grade 1 anterolisthe sis of L3 on L4. OTHER: No other significant finding. IMPRESSION: NONOBSTRUCTING CALCULUS IN THE LEFT KIDNEY. NO OTHER SIGNIFICANT OR ACUTE FINDING IN TH E ABDOMEN OR PELVIS ON CT SCAN WITH IV CONTRAST. NO EVIDENCE OF METASTATIC INVOLVEMENT. TECHNICAL DOCUMENTATION: JOB ID: [id number] Quality ID # 436: Final reports with documentation of one or more dose reduction techniques (e.g., Au tomated exposure control, adjustment of the mA and/or kV according to patient size, use of iterative reconstruction technique) 2010 [employer]- All Rights Reserved Reading location - IP/workstation name: [email or web address]
== END ==
LOC: RAD 07:28
PROVIDERS: ATTEND Internal Medicine
DX: C34.91 Malignant neoplasm of unspecified part of right bronchus or lung (principal); N20.0 Calculus of kidney; J43.9 Emphysema, unspecified
CPT/HCPCS: 71260; 74177

== ENCOUNTER → 2018-07-06 | Outpatient (CLI) | payer OTHER ==
--- NOTE | 2018-07-06 10:28 | RADIOLOGY REPORT (SQ) ---
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 TECHNIQUE: CT scan of the chest performed using helical scanning technique with dynamic intravenous contrast injection. Images reviewed with lung, soft tissue and bone windows. Reconstructed coronal a nd sagittal MPR images reviewed. All images stored on PACS. CT scan of the abdomen and pelvis performed with intravenous and without oral contrastusing helical s james technique with dynamic intravenous contrast injection. Images reviewed with lung, soft tissu e and bone windows. Reconstructed coronal and sagittal MPR images reviewed. Delayed images for eval uation of the urinary system also acquired and evaluated. All images stored on PACS. All CT scanners at this facility use dose modulation, iterative reconstruction, and/or weight based d osing when appropriate to reduce radiation dose to as low as reasonably achievable (ALARA). [facility]: Dose Right [facility]: CareDose [facility]: Dose Right [facility]: Teradose 4D [facility]: Smart [employer] RADIATION DOSE: CT Rad equipment meets quality standard of care and radiation dose reduction techniq ues were employed. CTDIvol: 4.4 - 4.8 mGy. DLP: 638 mGy-cm. . LIMITATIONS: None. FINDINGS: CHEST: LUNGS AND PLEURA: Clips right hilum post upper lobectomy. Lungs are hyperinflated and hyperlucent fr om obstructive disease with thickened interlobular septa at the bases from mild pulmonary fibrosis. No acute infiltrates. No pleural effusion. No pneumothorax. No worrisome lung nodule. HILAR AND MEDIASTINAL STRUCTURES: No identified masses or abnormal nodes. HEART AND VASCULAR STRUCTURES: No aneurysm or dissection. No central pulmonary emboli. No pericardi al effusion. HARDWARE: Left-sided permanent central line tip superior vena cava. Bilateral peripherally calcified breast implants THYROID AND OTHER SOFT TISSUES: No masses. No adenopathy. BONES: No significant finding. OTHER: No other significant finding. ABDOMEN AND PELVIS: LIVER: Normal size. No masses. No dilated ducts. SPLEEN: Normal size. No focal lesions. PANCREAS: No masses. No significant calcifications. No adjacent inflammation or peripancreatic fluid collections. Pancreatic duct not dilated. GALLBLADDER: Surgically absent ADRENAL GLANDS: No significant masses or asymmetry. RIGHT KIDNEY AND URETER: No solid masses. No significant calcification. No hydronephrosis or hydroure ter. LEFT KIDNEY AND URETER: No solid masses. Left lower pole 15 mm intrarenal nonobstructive stone, 880 Hounsfield units. No hydronephrosis or hydroureter. AORTA AND VESSELS: No aneurysm. No dissection. Greater than 75% stenosis proximal SMA sagittal recon struction image 37. RETROPERITONEUM: No retroperitoneal adenopathy, hemorrhage or masses. BOWEL AND PERITONEAL CAVITY: No masses or inflammatory changes. No free fluid or peritoneal masses. Large amount of stool throughout the colon APPENDIX: Normal. ABDOMINAL WALL: No masses. No hernias. PELVIS: No mass or free fluid. Normal bladder. Small post menopausal female pelvic organs. OTHER: No other significant finding. IMPRESSION: No CT evidence of metastatic lung cancer to the chest abdomen or pelvis. TECHNICAL DOCUMENTATION: JOB ID: [id number] Quality ID # [id number]: Final reports with documentation of one or more dose reduction techniques (e.g., Au tomated exposure control, adjustment of the mA and/or kV according to patient size, use of iterative reconstruction technique) 2010 [employer]- All Rights Reserved Reading location - IP/workstation name: [email or web address]
== END ==
LOC: RAD 07:59
PROVIDERS: ATTEND Internal Medicine
DX: C34.91 Malignant neoplasm of unspecified part of right bronchus or lung (principal); Z98.82 Breast implant status
CPT/HCPCS: 71260; 74177

== ENCOUNTER 2018-08-25 13:04 | Emergency (ER) | payer OTHER, MEDICARE ==
[2018-08-25] MEDS ORDERED: LEVETIRACETAM 1000 MG/NACL-ISO 1,000 MG/100 ML RTUPB IV ONE (13:24)
--- NOTE | 2018-08-25 13:28 | ER Document Report ---
ED Neuro Symptoms/Deficit - General Stated Complaint: POSSIBLE STROKE Time Seen by Provider: 08/25/18 13:19 Primary Care Provider: DWIGHT BARRAGAN MD [Primary Care Provider] - Follow up as needed Notes: 68-year-old female was brought in via EMS after a seizure. The patient had a full grand mal seizure. She does have a history of seizures in the past her last seizure was 3 years ago. After the seizure she was postictal and could not move her left side. This has completely resolved. The patient stated she is supposed to be on Keppra for her seizures but she has not had a seizure in 3 years. She has a history of brain tumor with removal. She had moved from [place] in May. The patient stated after seizures in the past she has had left-sided weakness. The patient states she is feeling fine now. Denies chest pain denies shortness of breath denies any headache at this time. Denies nausea vomiting. TRAVEL OUTSIDE OF THE [place] IN LAST 30 DAYS: No - Related Data Allergies/Adverse Reactions: No Known Allergies Allergy (Unverified 03/24/17 10:56) Past Medical History - Social History Smoking Status: Current Every Day Smoker Family History: Reviewed & Not Pertinent - Past Medical History Cardiac Medical History: Reports: Hx Hypertension Denies: Hx Coronary Artery Disease, Hx Heart Attack Pulmonary Medical History: Denies: Hx Asthma, Hx Bronchitis, Hx COPD, Hx Pneumonia Neurological Medical History: Reports: Hx Seizures - 2 prior to brain sx. Denies: Hx Cerebrovascular Accident Renal/ Medical History: Denies: Hx Peritoneal Dialysis Musculoskeletal Medical History: Reports Hx Arthritis - HANDS - Immunizations Hx Diphtheria, Pertussis, Tetanus Vaccination: Yes Hx Pneumococcal Vaccination: 07/28/15 Review of Systems - Review of Systems Constitutional: denies: Chills, Fever Cardiovascular: denies: Chest pain, Dyspnea Gastrointestinal: denies: Nausea, Vomiting Genitourinary: denies: Dysuria Neurological/Psychological: Paralysis, Seizure, Lost consciousness, Headaches -: Yes All other systems reviewed and negative Physical Exam - Notes Notes: GENERAL_APPEARANCE: well_nourished, alert, cooperative, no_acute_distress, no_obvious_discomfort. VITALS: reviewed, see vital signs table. HEAD: no_swelling\\tenderness on the head. EYES: PERRL, EOMI, conjunctiva_clear. NOSE: no_nasal_discharge. MOUTH: (-)decreased moisture. THROAT: no_throat_inflammation, no_airway_obstruction. no_lymphadenopathy NECK: supple, no_neck_tenderness, (-)thyromegaly. BACK: no_back_tenderness. CHEST_WALL: no_chest_tenderness. Port left chest LUNGS: no_wheezing, no_rales, no_rhonchi, (-)accessory muscle use, good air exchange bilateral. HEART: normal_rate, normal_rhythm, normal_S1, normal_S2, (-)S3, (-)S4, no_murmur, no_rub. ABDOMEN: normal_BS, soft, no_abd_tenderness, (-)guarding, (-)rebound, no_organomegaly, no_abd_masses. EXTREMITIES: good pulses in all_extremities, no_swelling\\tenderness in the extremities, no_edema. SKIN: warm, dry, good_color, no_rash. MENTAL_STATUS: speech_clear, oriented_X_3, normal_affect, responds_appropriately to questions. 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 Patient is completely back to baseline now. She states she has had similar episodes in the past. She has not been on Keppra for a while. She is just getting established with doctors locally. I will give the patient an IV dose of Keppra loading of thousand ozzie grams. We will place her on Keppra for home. 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 We will get her back on her seizure medicines. Have her follow-up. 08/25/18 15:36 The patient states she is feeling better and wants to go home. Again I spoke with her about seizures and Gama's paralysis. We will restart her on Keppra I loaded her here. The patient needed a repeat CMP because I did not have enough blood the patient refused to have it redrawn since this is a known seizure disorder I do not think it is terribly out of line to not have this information especially if the patient is declining it there is not much more we can do I did advised her to return if any other additional problems. - Laboratory Result Diagrams: 08/25/18 14:02 08/25/18 14:02 ED NIH Stroke Scale - NIH Stroke Scale *: 1. NIH scale should be completed with appropriate accompanying assessment tools. *: 2. The NIH should reflect what the patient is capable of doing and should not be coached by the clinician. 1a. Level of Consciousness: 0=Alert;keenly responsive -: 1=Drowsy -: 2=Obtunded -: 3=Coma/unresponsive or reflex to noxious stimuli. 1a. Responses: 0 1b. Orientation Questions: a. What month is it? -: b. How old are you? -: 0=Answers both questions correctly. -: 1=Answers one question correctly or patient is intubated or has orotracheal trauma. -: 2=Answers neither question correctly. 1b. Responses: 0 1c. Response to commands: a. Open and close eyes? -: b. Analyst and release hand? -: Credit is given despite weakness. Demonstration of task is permitted. Substitute command if hands cannot be used. -: 0=Performs both tasks correctly -: 1=Performs one task correctly -: 2=Performs neither task correctly 1c. Responses: 0 2. Gaze: Establish eye contact and instruct patient to "Follow my finger" -: 0=Normal -: 1=Partial gaze palsy. Gaze is abnormal in one or both eyes, but where forced deviation or total gaze paresis is not present. -: 2=Forced deviation or total gaze paresis. 2. Responses: 0 3. Visual Pina: Sees fingers in all four quadrants. -: 0=No visual loss. -: 1=Partial hemianopsia. -: 2=Complete hemianopsia. -: 3=Bilateral hemianopsia (including Cortical blindness) 3. Responses: 0 4. Facial Movement: Instruct patient to: -: a. Show me your teeth -: b. Raise your eyebrows -: c. Close your eyes -: d. Smile -: 0=Normal symmetrical movement -: 1=Minor paralysis (flattened nasolabial fold, asymmetry on smiling). -: 2=Partial paralysis (total or near total paralysis of lower face). -: 3=Complete paralysis of upper and lower face 4. Responses: 0 5. Motor functions (left arm): Alternate sides and extend each arm with palms down (90 degrees if sitting or 45 degrees for supine). -: 0=No drift;limb holds for full 10 seconds. -: 1=Drift; limb holds but drifts down before full 10 seconds, but does not hit bed. -: 2=Some effort against gravity; limb cannot get to or maintain position. -: 3=No effort against gravity; limb falls. -: 4=No movement. -: UN=Amputation, joint fusion, explain in comments. 5. Responses (left arm): 0 5. Motor Functions (right arm): Alternate sides and extend each arm with palms down (90 degrees if sitting or 45 degrees for supine). -: 0=No drift;limb holds for full 10 seconds. -: 1=Drift; limb holds but drifts down before full 10 seconds, but does not hit bed. -: 2=Some effort against gravity; limb cannot get to or maintain position. -: 3=No effort against gravity; limb falls. -: 4=No movement. -: UN=Amputation, joint fusion, explain in comments. 5. Responses (right arm): 0 6. Motor Functions (left leg): With patient lying supine, alternate sides and extend each leg (30 degrees always while supine). -: 0=No drift, leg holds position for full 5 seconds -: 1=Drift; leg falls before full 5 seconds but does not hit bed. -: 2=Some effort against gravity, leg falls to bed but some effort against gravity. -: 3=No effort against gravity, leg falls to bed immediately. -: 4=No movement. -: UN=Amputation, joint fusion; explain in comments. 6. Responses (left leg): 0 6. Motor Functions (right leg): With patient lying supine, alternate sides and extend each leg (30 degrees always while supine). -: 0=No drift, leg holds position for full 5 seconds -: 1=Drift; leg falls before full 5 seconds but does not hit bed. -: 2=Some effort against gravity, leg falls to bed but some effort against gravity. -: 3=No effort against gravity, leg falls to bed immediately. -: 4=No movement. -: UN=Amputation, joint fusion; explain in comments. 6. Responses (right leg): 0 7. Limb Ataxia: With eyes open instruct patient to: -: a. "Touch your finger to your nose". -: b. "Touch your heel to your bell" -: 0=Absent -: 1=Present in one limb. -: 2=Present in two limbs. -: UN=Amputation or joint fusion; explain in comments. 7. Responses: 0 8. Sensory: Test sensation using pinprick or noxious stimuli. Test as many body parts as possible. -: 0=Normal;no sensory loss -: 1=Mile to moderate sensory loss (patient feels pin prick but is less sharp on affected side). -: 2=Severe or total sensory loss. 8. Responses: 0 9. Best Language: Instruct patient to: -: a. "Describe what you see in this picture." -: b. "Name the items in this picture." -: c. "Read these sentences." -: 0=No aphasia, normal -: 1=Mild to moderate aphasia. -: 2=Severe aphasia -: 3=Mute, global aphasia, no usable speech or auditory comprehension. 9. Responses: 0 10. Articulation, Dysarthia: Instruct patient to: -: "Read these words" or "Repeat these words" -: 0=Normal -: 1=Mild to moderate; patient may slur some words but can be understood without difficulty. -: 2=Severe; patients speech so slurred as to be unintelligible in the absence of dysphasia. -: UN=Intubated or other physical barrier, explain in comments. 10. Responses: 0 11. Extinction or inattention: 0=No abnormality -: 1= Visual, tactile, auditory, spatial, or personal inattention or extinction to bilateral simulation in one or the sensory modalities. -: 2=Profound acosta-inattention or acosta-inattention to more than one modality; does not recognize own hand. 11. Responses: 0 Total Score: 0 Discharge - Discharge Clinical Impression: Seizure, Gama's paralysis (postepileptic) Condition: Good Disposition: HOME, SELF-CARE Instructions: Seizure, Known Epileptic ([facility]) Additional Instructions: Your left-sided weakness was due to a condition called Gama's paralysis. After a seizure you may experience weakness similar to a stroke. You have had seizures in the past and similar symptoms. We will start you back on Keppra for your seizures. And as you establish with a neurologist here you may follow-up if for any reason you have any other symptoms of concern to return to the ER and we will reevaluate Prescriptions: Levetiracetam [Keppra 500 mg Tablet] 500 mg PO Q12 #60 tablet Referrals: DWIGHT BARRAGAN MD [Primary Care Provider] - Follow up as needed
[2018-08-25 14:16] LABS: INTERNATIONAL RATION (INR) 0.87; PARTIAL THROMBOPLASTIN TIME 27.8 SEC (23.5-35.8); PROTHROMBIN TIME 12.3 SEC (11.4-15.4)
--- NOTE | 2018-08-25 14:30 | RADIOLOGY REPORT (SQ) ---
EXAM DESCRIPTION: CT HEAD WITHOUT COMPLETED DATE/TIME: 08/25/2018 2:17 pm REASON FOR STUDY: stroke s/s, Possible seizure COMPARISON: MR brain, 09/19/2017 TECHNIQUE: Axial images acquired through the brain without intravenous contrast. Images reviewed wi th bone, brain and subdural windows. Additional sagittal and coronal reconstructions were generated. Images stored on PACS. All CT scanners at this facility use dose modulation, iterative reconstruction, and/or weight based d osing when appropriate to reduce radiation dose to as low as reasonably achievable (ALARA). [facility]: Dose Right [facility]: CareDose [facility]: Dose Right [facility]: Teradose 4D [facility]: [employer] RADIATION DOSE: CT Rad equipment meets quality standard of care and radiation dose reduction techniq ues were employed. CTDIvol: 53.2 mGy. DLP: 1017 mGy-cm. mGy. LIMITATIONS: None. FINDINGS: VENTRICLES: Normal size and contour. CEREBRUM: There is redemonstrated right frontal encephalomalacia and extensive periventricular white matter hypodensity, within the limitations of cross modality comparison not significantly changed fro m prior MR examination dated 09/19/2017. CEREBELLUM: No masses. No hemorrhage. No alteration of density. No evidence for acute infarction. EXTRAAXIAL SPACES: No fluid collections. Unchanged mass of the falx. ORBITS AND GLOBE: No intra- or extraconal masses. Normal contour of globe without masses. CALVARIUM: No fracture. Status post right frontal craniotomy. PARANASAL SINUSES: No fluid or mucosal thickening. SOFT TISSUES: No mass or hematoma. OTHER: No other significant finding. IMPRESSION: There is redemonstrated right frontal encephalomalacia and extensive periventricular whi te matter hypodensity, within the limitations of cross modality comparison not significantly changed from prior MR examination dated 09/19/2017. Unchanged mass of the falx, of uncertain nature. Conside r contrast-enhanced MR to further evaluate for progression of known metastatic malignancy. EVIDENCE OF ACUTE STROKE: NO. COMMENT: Quality ID # 436: Final reports with documentation of one or more dose reduction techniques (e.g., Automated exposure control, adjustment of the mA and/or kV according to patient size, use of iterative reconstruction technique) TECHNICAL DOCUMENTATION: JOB ID: [id number] [employer]- All Rights Reserved Reading location - IP/workstation name: [email or web address]
[2018-08-25 14:31] LABS: ABSOLUTE BASOPHILS # (AUTO) 0.1 10^3/uL (0.0-0.2); ABSOLUTE EOSINOPHILS # (AUTO) 0.7 10^3/uL (0.0-0.6); ABSOLUTE LYMPHOCYTES (AUTO) 1.6 10^3/uL (0.5-4.7); ABSOLUTE MONOCYTES (AUTO) 0.4 10^3/uL (0.1-1.4); ABSOLUTE NEUT (AUTO) 4.3 10^3/uL (1.7-8.2); EOSINOPHILS % (AUTO) 9.3 % (0-6); HEMATOCRIT 43.9 % (36.0-47.0); LYMPHOCYTES % (AUTO) 23.2 % (13-45); MEAN CORPUSCULAR HEMOGLOBIN 31.6 pg (27.0-33.4); MEAN CORPUSCULAR HGB CONC 34.3 g/dL (32.0-36.0); MEAN CORPUSCULAR VOLUME 92 fl (80-97); MONOCYTES % (AUTO) 5.8 % (3-13); PLATELET COUNT 198 10^3/uL (150-450); RED BLOOD COUNT 4.75 10^6/uL (3.72-5.28); RED CELL DISTRIBUTION WIDTH 13.9 % (11.5-14.0); SEGMENTED NEUTROPHILS % (AUTO) 60.7 % (42-78); TOTAL CELLS COUNTED % (AUTO) 100 %
[2018-08-25 14:38] LABS: CREATINE KINASE MB 1.09 ng/mL (<4.55); TROPONIN I < 0.012 ng/mL
--- NOTE | 2018-08-25 15:05 | RADIOLOGY REPORT (SQ) ---
EXAM DESCRIPTION: CHEST SINGLE VIEW COMPLETED DATE/TIME: 08/25/2018 2:37 pm REASON FOR STUDY: stroke s/s COMPARISON: 01/09/2018 EXAM PARAMETERS: NUMBER OF VIEWS: One view. TECHNIQUE: Single frontal radiographic view of the chest acquired. RADIATION DOSE: NA LIMITATIONS: None. FINDINGS: LUNGS AND PLEURA: No opacities, masses or pneumothorax. No pleural effusion. MEDIASTINUM AND HILAR STRUCTURES: No masses. Contour normal. HEART AND VASCULAR STRUCTURES: Heart normal in size. Normal vasculature. BONES: No acute findings. HARDWARE: Bilateral calcified breast prostheses. Left-sided chest port with catheter tip at superior vena cava. OTHER: No other significant finding. IMPRESSION: No evidence of acute cardiopulmonary process. TECHNICAL DOCUMENTATION: JOB ID: [id number] [employer]- All Rights Reserved Reading location - IP/workstation name: [email or web address]
[2018-08-25] MEDS ORDERED: ACETAMINOPHEN 325 MG TABLET PO ONE (15:15)
[2018-08-25] MEDS ORDERED: LORAZEPAM INJ 2 MG/1 ML VIAL IV ONE (15:21)
--- NOTE | 2018-08-25 15:48 | EKG REPORT ---
SEVERITY:- ABNORMAL ECG - SINUS RHYTHM LOW VOLTAGE IN FRONTAL LEADS CONSIDER ANTEROSEPTAL INFARCT : Confirmed by: Saman Palma MD 25-Aug-2018 15:47:33
[2018-08-25 15:50] VITALS: BP 141/84
== END 2018-08-25 15:56 | disposition home or self-care (01) ==
LOC: ER 13:04
DX: G83.84 Todd's paralysis (postepileptic) (principal); R56.9 Unspecified convulsions; Z79.899 Other long term (current) drug therapy; F17.200 Nicotine dependence, unspecified, uncomplicated; I10 Essential (primary) hypertension
CPT/HCPCS: 93005; 99285; 96365; 36415; 82553; 85025; 85610; 85730; 84484; 71045; 70450; 93010; J1953

== ENCOUNTER → 2018-11-18 | Outpatient (CLI) | payer OTHER ==
--- NOTE | 2018-11-18 11:41 | RADIOLOGY REPORT (SQ) ---
EXAM DESCRIPTION: CT CHEST WITH COMPLETED DATE/TIME: 11/18/2018 10:43 am REASON FOR STUDY: AM C34.91 MALIGNANT NEOPLASM OF UNSP PART OF RIGHT BRONCHUS OR COMPARISON: 07/06/2018 TECHNIQUE: CT scan of the chest performed using helical scanning technique with dynamic intravenous contrast injection. Images reviewed with lung, soft tissue and bone windows. Reconstructed coronal and sagittal MPR and MIP images reviewed. All images stored on PACS. All CT scanners at this facility use dose modulation, iterative reconstruction, and/or weight based d osing when appropriate to reduce radiation dose to as low as reasonably achievable (ALARA). [facility]: Dose Right [facility]: CareDose [facility]: Dose Right [facility]: Teradose 4D [facility]: [employer] CONTRAST TYPE AND DOSE: See separate report of the same date. RENAL FUNCTION: See separate report. RADIATION DOSE: . LIMITATIONS: Motion. FINDINGS: LUNGS AND PLEURA: Status post right upper lobectomy. 1.5 cm soft tissue density adjacent to the clips image 24.Stable areas of bandlike scarring in the lung bases. No effusions. HILAR AND MEDIASTINAL STRUCTURES: See above. HEART AND VASCULAR STRUCTURES: No aneurysm or dissection. No central pulmonary emboli. No pericardi al effusion. HARDWARE: None in the chest. UPPER ABDOMEN: See separate report of the CT of the abdomen. THYROID AND OTHER SOFT TISSUES: Breast implants. BONES: Nothing acute. OTHER: Left-sided port tip in the SVC. IMPRESSION: 1.5 cm right hilar nodule adjacent to surgical clips. New since the prior. Consider co rrelation with PET-CT. TECHNICAL DOCUMENTATION: JOB ID: [id number] Quality ID # [id number]: Final reports with documentation of one or more dose reduction techniques (e.g., Au tomated exposure control, adjustment of the mA and/or kV according to patient size, use of iterative reconstruction technique) 2010 [email or web address]- All Rights Reserved Reading location - IP/workstation name: [email or web address]
--- NOTE | 2018-11-18 13:53 | RADIOLOGY REPORT (SQ) ---
EXAM DESCRIPTION: CT ABD/PELVIS WITH IV ONLY COMPLETED DATE/TIME: 11/18/2018 10:42 am REASON FOR STUDY: MALIGNANT NEOPLASM OF UNSP PART OF RIGHT BRONCHUS OR LUNG C34.91 MALIGNANT NEOPLA SM OF UNSP PART OF RIGHT BRONCHUS OR COMPARISON: 07/06/2018 TECHNIQUE: CT scan of the abdomen and pelvis performed using helical scanning technique with dynamic intravenous contrast injection. No oral contrast. Images reviewed with lung, soft tissue, and bone windows. Reconstructed coronal and sagittal MPR images reviewed. Delayed images for evaluation of the urinary system also acquired. All images stored on PACS. All CT scanners at this facility use dose modulation, iterative reconstruction, and/or weight based d osing when appropriate to reduce radiation dose to as low as reasonably achievable (ALARA). [facility]: Dose Right [facility]: CareDose [facility]: Dose Right [facility]: Teradose 4D [facility]: [employer] CONTRAST TYPE AND DOSE: contrast/concentration: Isovue 350.00 mg/ml; Total Contrast Delivered: 67.0 ml; Total Saline Delivered: 65.0 ml RENAL FUNCTION: BUN 7 creatinine 0.8 RADIATION DOSE: CT Rad equipment meets quality standard of care and radiation dose reduction techniq ues were employed. CTDIvol: 4.4 - 4.8 mGy. DLP: 657 mGy-cm.. LIMITATIONS: None. FINDINGS: LOWER CHEST: See separate report of the CT of the chest. LIVER: Normal size. No masses. No dilated ducts. SPLEEN: Normal size. No focal lesions. PANCREAS: No masses. No significant calcifications. No adjacent inflammation or peripancreatic fluid collections. Pancreatic duct not dilated. GALLBLADDER: No identified stones by CT criteria. No inflammatory changes to suggest cholecystitis. ADRENAL GLANDS: No significant masses or asymmetry. RIGHT KIDNEY AND URETER: No solid masses. No significant calcifications. No hydronephrosis or hyd roureter. LEFT KIDNEY AND URETER: No solid masses. No significant calcifications. No hydronephrosis or hydr oureter. AORTA AND VESSELS: No aneurysm. No dissection. Renal arteries, SMA, celiac without stenosis. RETROPERITONEUM: No retroperitoneal adenopathy, hemorrhage or masses. BOWEL AND PERITONEAL CAVITY: No masses or inflammatory changes. No free fluid or peritoneal masses. APPENDIX: Not identified. PELVIS: No mass. No free fluid. Normal bladder. ABDOMINAL WALL: No masses. No hernias. BONES: Grade 1 anterolisthesis of L3 on L4. Degenerative disc disease. No osseous lesions. OTHER: No other significant finding. IMPRESSION: There is no evidence of abdominal or pelvic metastases. Osseous findings as described. TECHNICAL DOCUMENTATION: JOB ID: [id number] Quality ID # [id number]: Final reports with documentation of one or more dose reduction techniques (e.g., Au tomated exposure control, adjustment of the mA and/or kV according to patient size, use of iterative reconstruction technique) 2010 [employer]- All Rights Reserved Reading location - IP/workstation name: [email or web address]
== END ==
LOC: RAD 09:38
PROVIDERS: ATTEND Internal Medicine
DX: C34.91 Malignant neoplasm of unspecified part of right bronchus or lung (principal)
CPT/HCPCS: 71260; 74177